=== PATIENT | male | born 2000 | race Caucasian/White ===

== ENCOUNTER 2024-07-16 01:31 | Outpatient (CLI) | payer OTHER, MEDICAID, SELFPAY ==
[2024-07-16 15:14] LABS: Hemoglobin A1C 4.7 % (<5.7)
[2024-07-16 16:08] LABS: Calculated LDL 51 mg/dL (<100); Cholesterol 111 mg/dL (<200); HDL Cholesterol 50 mg/dL (40-60); Triglyceride 51 mg/dL (<150)
== END 2024-07-16 01:32 | disposition home or self-care (01) ==
LOC: LBO 01:31
PROVIDERS: PCP Nurse Practitioner Family; Visit Provider Nurse Practitioner Family
DX: Z13.220 Encounter for screening for lipoid disorders (principal); Z13.1 Encounter for screening for diabetes mellitus
CPT/HCPCS: 36415; 80061; 83036